=== PATIENT | female | born 1970 | race Caucasian/White ===

== ENCOUNTER 2020-01-01 09:26 | Inpatient (IN) | payer MEDICAID ==
[~2020-01-01] VITALS: Ht 160 cm; Wt 71.5 kg
[~2020-01-01 09:26] MED LIST: MAGN400C PO
--- NOTE | 2020-01-01 10:02 | NUR ---
patient up to the bathroom.
[2020-01-01 10:25] LABS: BASOPHILS % (AUTO) 0.3 % (0-1); EOSINOPHILS % (AUTO) 0.3 % (0-6); HEMOGLOBIN 14.5 g/dl (12.0-16.0); LYMPHOCYTES # (AUTO) 1.5 X10'3 (1.1-4.8); LYMPHOCYTES % (AUTO) 11.9 % (21-51); MEAN CORPUSCULAR HEMOGLOBIN 31.3 PG (27.0-31.0); MEAN CORPUSCULAR HGB CONC 34.5 g/dL (33.0-36.5); MEAN CORPUSCULAR VOLUME 90.7 FL (78-98); MEAN PLATELET VOLUME 7.3 FL (7.4-10.4); MONOCYTES # (AUTO) 0.7 X10'3 (0-0.9); MONOCYTES % (AUTO) 5.6 % (2-12); NEUTROPHILS # (AUTO) 10.5 X10'3 (1.8-7.7); NEUTROPHILS % (AUTO) 81.9 % (42-75); PLATELET COUNT 338 X10'3 (140-440); RED BLOOD COUNT 4.63 X10'6 (4.20-5.60); RED CELL DISTRIBUTION WIDTH 14.4 % (11.5-14.5); WHITE BLOOD COUNT 12.8 X10'3 (4.5-11.0)
[2020-01-01 10:43] LABS: ALANINE AMINOTRANSFERASE 80 U/L (12-78); ALBUMIN 3.8 G/DL (3.4-5.0); ALBUMIN/GLOBULIN RATIO 0.7 (1.1-1.5); ALKALINE PHOSPHATASE 109 IU/L (46-116); ANION GAP 10 (8-16); ASPARTATE AMINO TRANSFERASE 67 U/L (10-37); BILIRUBIN,TOTAL 0.9 MG/DL (0.1-1.0); BLOOD UREA NITROGEN 10 MG/DL (7-18); BUN/CREATININE RATIO 11.5 (6.6-38.0); CALCIUM 9.6 MG/DL (8.5-10.1); CHLORIDE 98 MMOL/L (99-107); CREATININE 0.87 MG/DL (0.40-0.90); GLUCOSE 92 MG/DL (70-104); LIPASE 132 U/L (73-393); POTASSIUM 3.3 MMOL/L (3.5-5.1); SODIUM 133 MMOL/L (135-145); TOTAL CARBON DIOXIDE 24.7 MMOL/L (24-32); TOTAL PROTEIN 9.2 G/DL (6.4-8.2); eGFR 69 ML/MIN
[2020-01-01] MEDS ORDERED: normal saline 1000ML IV soln IV ONE (10:55)
[2020-01-01] MEDS: diatr meglu/diatrizoate 30ml oral sol.-(3 dose) bottle PO SCH ×3 (11:05→12:14)
[2020-01-01 11:14] LABS: MAGNESIUM 2.3 MG/DL (1.5-2.4)
[2020-01-01 11:17] LABS: CLARITY,URINE CLEAR (Clear); COLOR,URINE YELLOW (Yellow); GLUCOSE, URINE NEGATIVE (Neg); KETONES,URINE TRACE mg/dl (Neg); LEUKOCYTE ESTERASE ,URINE NEGATIVE (Neg); NITRITES, URINE NEGATIVE (Neg); OCCULT BLOOD,URINE MODERATE (Neg); PROTEIN,URINE NEGATIVE (Neg)
[2020-01-01 11:18] LABS: URINE HCG NEGATIVE (NEG)
[2020-01-01 11:25] LABS: UA COLLECTION TYPE CLN CATCH MIDSTREAM
[2020-01-01 11:26] LABS: BACTERIA,URINE FEW /HPF (Neg); MUCUS STRANDS FEW /LPF (Neg); RBC,URINE 0-2 /HPF (0-2); SQUAMOUS EPITHELIAL CELL,UR MANY /LPF (FEW); WBC,URINE 0-4 /HPF (0-4)
[2020-01-01] MEDS ORDERED: iohexol 300mg/ml 100ml inj. ONE (12:17)
--- NOTE | 2020-01-01 13:05 | NUR ---
back in the room from ct.
[2020-01-01] MEDS ORDERED: metroNIDAZOLE-Flagyl 500mg/NS 100 ML IV ONE (13:35)
[2020-01-01] MEDS ORDERED: levoFLOXACIN-Levaquin 750MG/D5 150 ML IV ONE (13:35)
--- NOTE | 2020-01-01 13:45 | NUR ---
Chaperoned pelvic exam performed by Dr Meredith.
[2020-01-01] MEDS ORDERED: BRIM5DRO16 OP (14:21)
[2020-01-01] MEDS: normal saline 1000ml 1,000 ML IV SCH ×2 (14:29→23:32)
[2020-01-01] MEDS ORDERED: magnesium Cl slow-release 64mg tablet PO PRN (14:30)
[2020-01-01] MEDS ORDERED: potassium Cl 20 mEq SR tablet PO PRN ×2 (14:30)
[2020-01-01] MEDS ORDERED: magnesium 2GM in 50ml NS 50 ML IV PRN (14:30)
[2020-01-01] MEDS ORDERED: acetaminophen 325mg tablet PO PRN (14:30)
[2020-01-01] MEDS ORDERED: potassium CL 10mEq/100ml bag 100 ML IV PRN (14:30)
[2020-01-01] MEDS ORDERED: morphine 2 MG/ML inj. syringe IV PRN (14:30)
[2020-01-01] MEDS ORDERED: magnesium 4gm in 100ml NS 100 ML IV PRN (14:30)
[2020-01-01] MEDS ORDERED: HYDROcodone/acetaminophen 5mg/325mg tablet PO PRN (14:30)
[2020-01-01] MEDS ORDERED: ondansetron/PF 4mg/2ml inj IV PRN (14:30)
[2020-01-01] MEDS ORDERED: DORZ10DR10 EACHEYE (14:39)
--- NOTE | 2020-01-01 15:30 | NUR ---
Patient in room NAT 350. I have received report from Gallito BARAHONA and had the opportunity to ask questions and assume patient care.
--- NOTE | 2020-01-01 15:45 | NUR ---
Patient arrived to floor patient made familiar with room and given call light. vitals and weight taken at this time
[2020-01-01] MEDS ORDERED: CHOL500050 PO (15:47)
--- NOTE | 2020-01-01 16:00 | NUR ---
Patients gross assessment was wnl excluding pain and colitis. patient doing well no pain medication requested at this time.
[2020-01-01 16:08] VITALS: BP 127/87
[2020-01-01] MEDS: metroNIDAZOLE-Flagyl 500mg/NS 100 ML IV SCH ×2 (16:20→23:32)
[2020-01-01] MEDS: potassium CL 10mEq/100ml bag 100 ML IV PRN ×4 (18:38→22:32)
--- NOTE | 2020-01-01 18:45 | NUR ---
Received report from primary care nurse Rakan RN. Assumed patient care. Patient is awake and alert on room air. In no apparent distress. Call light and items of frequent use within reach. Will continue to monitor for changes.
--- NOTE | 2020-01-01 18:53 | NUR ---
Problems reprioritized. Patient report given, questions answered & plan of care reviewed with Kezia BARAHONA.
[2020-01-01 19:00] VITALS: BP 122/68
[2020-01-01] MEDS: K and/or MAG REPLACEMENT MC SCH (19:24)
[2020-01-01] MEDS: brimonidine 0.2% 5 ML ophthalmic drops EACHEYE SCH (20:27)
[2020-01-01] MEDS: dorzolamide/timolol (Cosopt) ophthalmic drops 10ml bottle EACHEYE SCH (20:27)
[2020-01-02] VITALS: BP 117/71
[2020-01-02 05:29] LABS: ALBUMIN 2.7 G/DL (3.4-5.0); ANION GAP 10 (8-16); BASOPHILS % (AUTO) 0.2 % (0-1); BLOOD UREA NITROGEN 8 MG/DL (7-18); BUN/CREATININE RATIO 11.3 (6.6-38.0); CALCIUM 8.3 MG/DL (8.5-10.1); CHLORIDE 104 MMOL/L (99-107); CREATININE 0.71 MG/DL (0.40-0.90); EOSINOPHILS # (AUTO) 0.1 X10'3 (0-0.9); EOSINOPHILS % (AUTO) 1.3 % (0-6); GLUCOSE 74 MG/DL (70-104); HEMATOCRIT 34.6 % (35.0-45.0); HEMOGLOBIN 11.6 g/dl (12.0-16.0); LYMPHOCYTES # (AUTO) 1.7 X10'3 (1.1-4.8); LYMPHOCYTES % (AUTO) 19.8 % (21-51); MAGNESIUM 1.9 MG/DL (1.5-2.4); MEAN CORPUSCULAR HEMOGLOBIN 30.5 PG (27.0-31.0); MEAN CORPUSCULAR HGB CONC 33.6 g/dL (33.0-36.5); MEAN CORPUSCULAR VOLUME 90.8 FL (78-98); MEAN PLATELET VOLUME 7.4 FL (7.4-10.4); MONOCYTES # (AUTO) 0.6 X10'3 (0-0.9); MONOCYTES % (AUTO) 7.2 % (2-12); NEUTROPHILS # (AUTO) 6.2 X10'3 (1.8-7.7); NEUTROPHILS % (AUTO) 71.5 % (42-75); PLATELET COUNT 317 X10'3 (140-440); POTASSIUM 3.8 MMOL/L (3.5-5.1); RED BLOOD COUNT 3.81 X10'6 (4.20-5.60); RED CELL DISTRIBUTION WIDTH 14.6 % (11.5-14.5); SODIUM 137 MMOL/L (135-145); TOTAL CARBON DIOXIDE 23.3 MMOL/L (24-32); WHITE BLOOD COUNT 8.7 X10'3 (4.5-11.0); eGFR 87 ML/MIN
--- NOTE | 2020-01-02 06:53 | NUR ---
Patient in room NAT 350. I have received report from Kezia BARAHONA and had the opportunity to ask questions and assume patient care.
[2020-01-02 07:00] VITALS: BP 114/75
[2020-01-02 07:17] VITALS: BP 114/75
[2020-01-02] MEDS: dorzolamide/timolol (Cosopt) ophthalmic drops 10ml bottle EACHEYE SCH ×2 (07:43→21:16)
[2020-01-02] MEDS: brimonidine 0.2% 5 ML ophthalmic drops EACHEYE SCH ×2 (07:43→21:16)
[2020-01-02] MEDS: metroNIDAZOLE-Flagyl 500mg/NS 100 ML IV SCH ×2 (07:44→16:05)
[2020-01-02] MEDS: K and/or MAG REPLACEMENT MC SCH ×2 (08:00→18:57)
[2020-01-02] MEDS: levoFLOXACIN-Levaquin 750MG/D5 150 ML IV SCH (08:59)
[2020-01-02] MEDS: normal saline 1000ml 1,000 ML IV SCH ×2 (10:29→14:48)
[2020-01-02 11:00] VITALS: BP 135/78
--- NOTE | 2020-01-02 16:17 | NUR ---
MESSAGE: MATTHEW SURG [id number] RE: ROSSI PATIENT COMPLAINING OF HEADACHE CAN WE GET TYLENOL PER HER REQUEST? THANKS MATTHEW.
--- NOTE | 2020-01-02 17:26 | NUR ---
MESSAGE: MATTHEW SURG [id number] RE: ROSSI 350B PT COMPLAINING OF HEADACHE WOULD YOU LIKE TO ADD TYLENOL PER REQUEST OF PT THANKS MATTHEW Addendum: 01/02/20 at 1839 by Kailash Richter RN physician returned call and order for tylenol were received.
[2020-01-02] MEDS ORDERED: acetaminophen 325mg tablet PO PRN (17:55)
[2020-01-02 18:00] VITALS: BP 115/68
--- NOTE | 2020-01-02 18:38 | NUR ---
Problems reprioritized. Patient report given, questions answered & plan of care reviewed with Gabrielle BARAHONA.
--- NOTE | 2020-01-02 19:57 | NUR ---
Patient in room NAT 350. I have received report from Kailash BARAHONA and had the opportunity to ask questions and assume patient care. Patient was resting comfortably during report and no acute distress was noted.
[2020-01-02] MEDS: lactobacillus rhamnosus 10,000 MMU CELLS/CAPSULE PO SCH (21:16)
[2020-01-02] MEDS: hydrocortisone sod succ/PF 100mg/2ml inj. IV SCH (21:17)
[2020-01-03] VITALS: BP 110/58
[2020-01-03] MEDS: metroNIDAZOLE-Flagyl 500mg/NS 100 ML IV SCH ×2 (00:56→07:35)
[2020-01-03] MEDS: hydrocortisone sod succ/PF 100mg/2ml inj. IV SCH ×2 (00:56→08:57)
[2020-01-03 06:18] LABS: BASOPHILS % (AUTO) 0.2 % (0-1); EOSINOPHILS % (AUTO) 0 % (0-6); HEMATOCRIT 35.9 % (35.0-45.0); HEMOGLOBIN 12.4 g/dl (12.0-16.0); LYMPHOCYTES # (AUTO) 1.1 X10'3 (1.1-4.8); LYMPHOCYTES % (AUTO) 13.7 % (21-51); MEAN CORPUSCULAR HEMOGLOBIN 31.3 PG (27.0-31.0); MEAN CORPUSCULAR HGB CONC 34.6 g/dL (33.0-36.5); MEAN CORPUSCULAR VOLUME 90.5 FL (78-98); MEAN PLATELET VOLUME 7.1 FL (7.4-10.4); MONOCYTES # (AUTO) 0.1 X10'3 (0-0.9); MONOCYTES % (AUTO) 1.7 % (2-12); NEUTROPHILS # (AUTO) 6.9 X10'3 (1.8-7.7); NEUTROPHILS % (AUTO) 84.4 % (42-75); PLATELET COUNT 378 X10'3 (140-440); RED BLOOD COUNT 3.97 X10'6 (4.20-5.60); RED CELL DISTRIBUTION WIDTH 14.5 % (11.5-14.5); WHITE BLOOD COUNT 8.2 X10'3 (4.5-11.0)
[2020-01-03] MEDS: normal saline 1000ml 1,000 ML IV SCH (06:29)
[2020-01-03 06:32] LABS: ANION GAP 12 (8-16); BLOOD UREA NITROGEN 7 MG/DL (7-18); BUN/CREATININE RATIO 9.2 (6.6-38.0); CALCIUM 8.4 MG/DL (8.5-10.1); CHLORIDE 103 MMOL/L (99-107); CREATININE 0.76 MG/DL (0.40-0.90); GLUCOSE 135 MG/DL (70-104); MAGNESIUM 1.9 MG/DL (1.5-2.4); POTASSIUM 3.5 MMOL/L (3.5-5.1); SODIUM 139 MMOL/L (135-145); TOTAL CARBON DIOXIDE 24.3 MMOL/L (24-32); eGFR 81 ML/MIN
--- NOTE | 2020-01-03 06:36 | NUR ---
Problems reprioritized. Patient report given, questions answered & plan of care reviewed with Kailash BARAHONA. Patient was resting comfortably during report.
[2020-01-03] MEDS: lactobacillus rhamnosus 10,000 MMU CELLS/CAPSULE PO SCH (07:39)
[2020-01-03] MEDS: dorzolamide/timolol (Cosopt) ophthalmic drops 10ml bottle EACHEYE SCH (07:39)
[2020-01-03] MEDS: brimonidine 0.2% 5 ML ophthalmic drops EACHEYE SCH (07:40)
[2020-01-03 07:51] VITALS: BP 119/62
[2020-01-03] MEDS: K and/or MAG REPLACEMENT MC SCH (08:00)
[2020-01-03] MEDS: levoFLOXACIN-Levaquin 750MG/D5 150 ML IV SCH (08:56)
[2020-01-03] MEDS ORDERED: PRED50TA PO (09:37)
[2020-01-03] MEDS ORDERED: ESOM40CA PO (09:37)
[2020-01-03] MEDS ORDERED: METR-159 PO (09:39)
[2020-01-03] MEDS ORDERED: LEVO500T89 PO (09:39)
[2020-01-03 11:28] VITALS: BP 105/64
--- NOTE | 2020-01-03 11:30 | NUR ---
Patient discharged with new medications patient showed verbal understanding of discharge teaching. patient medication sent to pharmacy. patient instructed to keep GI appointment to follow up when MD thinks it is okay. Patient instructed to follow up with primary after 2-3 days, patient discharged and taken to private vehicle in a wheelchair
--- NOTE | 2020-01-04 11:22 | NUR ---
late note entry: Received call from David at [facility] pharmacy, [facility], regarding possible side effects with home Rx Levaquin and prednisone. Called Dr Hernandez and gave him the message. He stated he is aware of possible side effects and to continue with Rx. Gave same message to David at [facility].
== END 2020-01-03 11:22 | disposition home or self-care (01) | DRG 245 ==
LOC: ER 09:27 → ED HOLD 14:29 → EDBEDREQ 14:51 → SUR 3N 15:37
PROVIDERS: ADMIT Internal Medicine; ATTEND Internal Medicine
PROC: BW211ZZ Computerized Tomography (CT Scan) of Abdomen and Pelvis using Low Osmolar Contrast (ICD-10-PCS; principal; 2020-01-01)
DX: K50.00 Crohn's disease of small intestine without complications (principal); M46.1 Sacroiliitis, not elsewhere classified; D25.9 Leiomyoma of uterus, unspecified; Z80.0 Family history of malignant neoplasm of digestive organs
CPT/HCPCS: 36415; 74177; 80048; 80053; 81001; 81025; 83605; 83690; 83735; 84145; 85025; 85651; 87040; 87045; 87046; 87081; 99285; G0378; J1720; J1956; J3480; J3490; J7030; Q9963; Q9967

== ENCOUNTER 2020-02-29 09:03 | Day surgery (SDC) | payer MEDICAID ==
[~2020-02-29] VITALS: Ht 160 cm; Wt 72.6 kg
[2020-02-29] VITALS (18 sets, daily range): BP systolic 107–129; BP diastolic 63–81
[~2020-02-29 09:03] MED LIST changes: +BRIM5DRO16 OP; +BUPIVAcaine/PF 2.5 mg/ml (0.25%) 30ml vial ONE; +CHOL500050 PO; +DORZ10DR10 EACHEYE; +LIDOcaine 1% 30ml preserv. free vial ONE; -MAGN400C PO; +OM3-1CAP PO; +famotidine 20mg tablet PO ONE; +ringers solution, lacted 1,000 ML IV SCH
[2020-02-29] MEDS ORDERED: clindamycin-Cleocin 900mg/D5W 50 ML IV ONE (09:20)
[2020-02-29] MEDS ORDERED: CLINDAMYCIN/D5W 900mg/50ml 50 ML IV ONE (09:20)
[2020-02-29 10:17] LABS: BASOPHILS % (AUTO) 0.4 % (0-1); EOSINOPHILS % (AUTO) 0.5 % (0-6); LYMPHOCYTES # (AUTO) 1.9 X10'3 (1.1-4.8); LYMPHOCYTES % (AUTO) 31.6 % (21-51); MEAN CORPUSCULAR HEMOGLOBIN 30.9 PG (27.0-31.0); MEAN CORPUSCULAR HGB CONC 33.8 g/dL (33.0-36.5); MEAN CORPUSCULAR VOLUME 91.2 FL (78-98); MEAN PLATELET VOLUME 8.2 FL (7.4-10.4); MONOCYTES # (AUTO) 0.4 X10'3 (0-0.9); MONOCYTES % (AUTO) 6.6 % (2-12); NEUTROPHILS # (AUTO) 3.7 X10'3 (1.8-7.7); NEUTROPHILS % (AUTO) 60.9 % (42-75); PRE OP HEMATOCRIT 42.2 % (35.0-45.0); PRE OP HEMOGLOBIN 14.3 g/dL (12.0-16.0); PRE OP PLATELET COUNT 281 X10'3 (140-440); RED BLOOD COUNT 4.63 X10'6 (4.20-5.60)
[2020-02-29 10:30] LABS: ALKALINE PHOSPHATASE 54 IU/L (46-116); BLOOD UREA NITROGEN 11 MG/DL (7-18); BUN/CREATININE RATIO 12.9 (6.6-38.0); CALCIUM 9.3 MG/DL (8.5-10.1); CHLORIDE 104 MMOL/L (99-107); CREATININE 0.85 MG/DL (0.40-0.90); PRE OP ALT 20 U/L (30-65); PRE OP ANION GAP 9 (8-16); PRE OP AST 18 U/L (10-37); PRE OP BILIRUB, TOTAL 0.5 MG/DL (0.0-1.0); PRE OP GLUCOSE 92 MG/DL (70-104); PRE OP POTASSIUM 3.7 MMOL/L (3.4-5.1); PRE OP SODIUM 137 MMOL/L (135-145); TOTAL CARBON DIOXIDE 24.1 MMOL/L (24-32); eGFR 71 ML/MIN
--- NOTE | 2020-02-29 10:55 | NUR ---
PATIENT HAS NOT TRAVELED OUT OF THE AREA, HAS NOT BEEN EXPOSED TO ANYONE WITH COVID TO HER KNOWLEDGE AND HAS NO SYMPTOMS OF COVID AT THIS TIME.
[2020-02-29] MEDS ORDERED: sevoflurane 250ml liquid IH ONE (12:25)
[2020-02-29] MEDS ORDERED: metoprolol tartrate 1mg/ml inj IV ONE (12:25)
[2020-02-29] MEDS ORDERED: ringers solution, lacted 1,000 ML IV SCH (12:35)
[2020-02-29] MEDS ORDERED: proCHLORperazine 10 MG/2 ml inj IV PRN (12:35)
[2020-02-29] MEDS ORDERED: morphine 2 MG/ML inj. syringe IV PRN (12:35)
[2020-02-29] MEDS ORDERED: meperidine/PF 25mg/ml syringe IV PRN ×3 (12:35)
[2020-02-29] MEDS ORDERED: ondansetron/PF 4mg/2ml inj IV PRN (12:35)
[2020-02-29] MEDS ORDERED: morphine 4 MG/ML inj SYRINge IV PRN (12:35)
[2020-02-29] MEDS ORDERED: fentaNYL/PF 50MCG/1 ML 2ML syringe ONE ×2 (13:25→13:47)
[2020-02-29] MEDS ORDERED: midazolam 2 mg/2 ml injection ONE (13:26)
[2020-02-29] MEDS ORDERED: dexamethasone sod phosphate 4mg/ml inj. ONE (13:28)
[2020-02-29] MEDS ORDERED: ondansetron/PF 4mg/2ml inj ONE (13:28)
[2020-02-29] MEDS ORDERED: rocuronium 10mg/ml inj IV ONE (13:28)
[2020-02-29] MEDS ORDERED: neostigmine methylsulfate 1 MG/ML 10ml vial ONE (13:28)
[2020-02-29] MEDS ORDERED: LIDOcaine 2% (20mg/ml) 5ml vial ONE (13:28)
[2020-02-29] MEDS ORDERED: glycopyrrolate 0.2mg/ml inj ONE (13:28)
[2020-02-29] MEDS ORDERED: propofol inj 20 ML IV ONE (13:28)
[2020-02-29] MEDS ORDERED: acetaminophen 1,000mg/100ml IV 100 ML IV ONE (13:58)
--- NOTE | 2020-02-29 14:15 | NUR ---
Received from OR via [facility], accompanied by Anesthesiologist DR CONNELLY and report given by Anesthesiologist. PT DROWSY, DENIES PAIN, ABDOMEN W/3 LAP SITES W/DERMABOND CDI. Addendum: 02/29/20 at 1524 by Zenia Begum RN Amended: Links added.
[2020-02-29] MEDS ORDERED: oxyCODONE/APAP 5-325mg tablet PO PRN (14:25)
[2020-02-29] MEDS ORDERED: ondansetron 4mg rapidly disintigrating tab PO ONE (16:50)
--- NOTE | 2020-02-29 17:15 | NUR ---
PT GIVEN ZOFRAN ODT FOR NAUSEA W/IMPROVEMENT IN NAUSEA, PT ABLE TO AMBULATE SAFELY, D/C INSTRUCTIONS GIVEN AND GONE OVER W/PT WHO VERBALIZED UNDERSTANDING. PT D/CD TO HOME VIA W/C TO PRIVATE VEHICLE W/O INCIDENT. Addendum: 02/29/20 at 1747 by Zenia Begum RN Amended: Links added.
== END 2020-02-29 17:15 | disposition home or self-care (01) ==
LOC: PAS 09:03
PROVIDERS: ATTEND Surgery
PROC: 8E0W4CZ Robotic Assisted Procedure of Trunk Region, Percutaneous Endoscopic Approach (ICD-10-PCS; 2020-02-29)
PROC: 0DTJ4ZZ Resection of Appendix, Percutaneous Endoscopic Approach (ICD-10-PCS; principal; 2020-02-29 13:25)
DX: K36 Other appendicitis (principal); K38.0 Hyperplasia of appendix; R10.31 Right lower quadrant pain
CPT/HCPCS: 36415; 44970; 80053; 84702; 85025; J0131; J1100; J2001; J2175; J2250; J2405; J2704; J2710; J3010; J3490; S2900; A4215; A4618; J7120

== ENCOUNTER 2023-08-04 12:33 | Outpatient (CLI) | payer MEDICAID ==
[~2023-08-04 12:33] MED LIST changes: -BRIM5DRO16 OP; +BRIM5DRO6 OP; -BUPIVAcaine/PF 2.5 mg/ml (0.25%) 30ml vial ONE; -LIDOcaine 1% 30ml preserv. free vial ONE; -famotidine 20mg tablet PO ONE; -ringers solution, lacted 1,000 ML IV SCH
== END 2023-08-04 23:59 | disposition home or self-care (01) ==
LOC: RAD 12:33
PROVIDERS: ATTEND Family Medicine
DX: M79.644 Pain in right finger(s) (principal)
CPT/HCPCS: 73130